=== PATIENT | male | born 2000 | race Caucasian/White ===

== ENCOUNTER 2019-05-12 22:01 | Emergency (ER) | payer OTHER ==
--- NOTE | 2019-05-12 22:39 | RAD ---
Left wrist 3 views HISTORY: Left wrist injury. FINDINGS: Scaphoid waist and ulnar styloid are intact. No acute fracture, dislocation, or radiopaque foreign bodies. IMPRESSION: Normal exam.
--- NOTE | 2019-05-12 22:40 | RAD ---
Left hand 3 views HISTORY: Injury. FINDINGS: Joint spaces are preserved. No acute fracture, dislocation, or aggressive osseous erosions. Soft tissue irregularity and overlying dressing at the volar aspect of the wrist. IMPRESSION: No acute osseous abnormalities are demonstrated.
--- NOTE | 2019-05-12 22:44 | RAD ---
Right wrist 3 views HISTORY: Injury. FINDINGS: Scaphoid waist and ulnar styloid are intact. Postoperative changes of the third metacarpal evident. No acute fracture, dislocation, or aggressive osseous erosions. No radiopaque foreign bodies are appa rent. IMPRESSION: No acute osseous abnormalities are demonstrated.
--- NOTE | 2019-05-12 22:45 | RAD ---
Right hand 3 views HISTORY: Hand injury. FINDINGS: Joint spaces are preserved. Metallic screws over the third metacarpal shaft. No acute fract ure, dislocation, or radiopaque foreign bodies otherwise demonstrated. IMPRESSION: No acute osseous abnormalities are demonstrated.
[2019-05-12] MEDS ORDERED: Lidocaine 1% (PF) 30 ML VIAL ONE (22:49)
== END 2019-05-13 00:10 | disposition home or self-care (01) ==
LOC: ERS 22:01
DX: S61.012A Laceration without foreign body of left thumb without damage to nail, initial encounter (principal); S61.512A Laceration without foreign body of left wrist, initial encounter; W25.XXXA Contact with sharp glass, initial encounter
CPT/HCPCS: 12002; J2001